=== PATIENT | female | born 2000 | race Caucasian/White ===

== ENCOUNTER 2021-08-07 14:05 | Emergency (ER) | payer OTHER ==
[2021-08-07 14:55] LABS: HEMOGLOBIN 14.7 gm/dl (12.3-15.3); RED BLOOD COUNT 4.87 M/UL (4.00-5.10); WHITE BLOOD COUNT 10.8 K/UL (4.5-11.0)
[2021-08-07 15:14] LABS: BUN/CREATININE RATIO 16 (0-10)
== END 2021-08-07 17:54 | disposition home or self-care (01) ==
LOC: ER1 14:05
PROVIDERS: Physician Assistant
DX: O20.0 Threatened abortion (principal); Z3A.08 8 weeks gestation of pregnancy
CPT/HCPCS: 76817; 80053; 81001; 84702; 85025; 86850; 86900; 86901; 99284; J2790